=== PATIENT | male | born 1985 | race Caucasian/White ===

== ENCOUNTER 2017-04-24 13:46 | Emergency (ER) | payer OTHER | END 2017-04-24 15:10 | disposition home or self-care (01) | LOC: ER1 13:46 | DX: J18.1 Lobar pneumonia, unspecified organism (principal); F17.210 Nicotine dependence, cigarettes, uncomplicated | CPT/HCPCS: 71020; 87081; 87880; 99283 ==

== ENCOUNTER 2021-12-02 19:35 | Emergency (ER) | payer OTHER ==
[2021-12-03] MEDS ORDERED: CLINDAMYCIN PHO30 ML TP (01:36)
[2021-12-03] MEDS ORDERED: VIBRAMYCIN100 MG PO (01:36)
== END 2021-12-03 02:46 | disposition home or self-care (01) ==
LOC: ER1 19:35
DX: L73.2 Hidradenitis suppurativa (principal); L02.412 Cutaneous abscess of left axilla; L03.112 Cellulitis of left axilla
CPT/HCPCS: 96374; 96375; 99282; J1885